=== PATIENT | male | born 1945 | race Two or more races ===

== ENCOUNTER 2018-05-27 11:40 | Outpatient (CLI) | payer OTHER | END 2018-05-27 15:15 | disposition home or self-care (01) | LOC: MRI 11:40 | DX: R22.42 Localized swelling, mass and lump, left lower limb (principal); M23.92 Unspecified internal derangement of left knee; M17.0 Bilateral primary osteoarthritis of knee | CPT/HCPCS: 73718; 73721 ==

== ENCOUNTER 2018-05-31 07:11 | Day surgery (SDC) | payer OTHER | END 2018-05-31 13:45 | disposition home or self-care (01) | LOC: AMB-ENDOS 07:11 | DX: D12.4 Benign neoplasm of descending colon (principal) ==